=== PATIENT | male | born 1940 | race Caucasian/White ===

== ENCOUNTER 2018-01-26 13:19 | Emergency (ER) | payer OTHER ==
[~2018-01-26] VITALS: Ht 175.3 cm; Wt 76.7 kg
[2018-01-26] MEDS ORDERED: PLAVIX75 MG (14:43)
[2018-01-26] MEDS ORDERED: COREG CR10 MG (14:43)
[2018-01-26] MEDS ORDERED: LISINOPRIL10 MG (14:43)
[2018-01-26] MEDS ORDERED: ASPIR 8181 MG (14:43)
[2018-01-26] MEDS ORDERED: BUMETANIDE1 MG (14:43)
[2018-01-26] MEDS ORDERED: NOVOLOG MI100 UNIT/2 (14:44)
[2018-01-26] MEDS ORDERED: CRESTOR5 MG (14:44)
== END 2018-01-26 16:16 | disposition home or self-care (01) ==
LOC: ER 13:19
DX: R06.02 Shortness of breath (principal); I25.10 Atherosclerotic heart disease of native coronary artery without angina pectoris